=== PATIENT | female | born 1995 | race Caucasian/White ===

== ENCOUNTER 2020-01-08 19:23 | Observation (INO) ==
[2020-01-08] MEDS ORDERED: HYDROmorphone INJ 1 MG/ML SYRINGE IV PRN (19:41)
[2020-01-08] MEDS ORDERED: KETOROLAC 30 MG/ML VIAL IV STA (19:41)
[2020-01-08] MEDS ORDERED: SODIUM CHLORIDE 0.9% 1000ML 1,000 ML IV ONE (19:41)
[2020-01-08] MEDS ORDERED: ONDANSETRON INJ 2 MG/ML 2 ML VIAL IV STA (19:41)
--- NOTE | 2020-01-08 19:49 | Emergency Department Note ---
History of Present Illness General Chief complaint: Abdominal Pain Stated complaint: STOMACH PAIN Time Seen by Provider: 01/08/20 19:37 Source: patient, family, RN notes reviewed and old records reviewed Mode of arrival: ambulatory Limitations: no limitations History of Present Illness Provider complaint: Abdominal pain Onset (ago): hour(s) 8 Location: abdomen Radiation: non-radiation Severity: severe Pain Consistency: + colicky Maximum Pain Intensity: 10 Current Pain Intensity: 10 Quality: + stabbing Relieved By: + none Exacerbated By: + none Associated symptoms: + denies other symptoms Treatments prior to arrival: other (Tylenol) This is a 24-year-old female who presents emergency department complaining of severe right upper quadrant abdominal pain that started after eating breakfast this morning. The patient had strange for breakfast. She is scheduled to have a gastric bypass sometime in the next several months in [place]. In addition the patient has a history of gallstones. She has previously seen a surgeon for her gallstones however the decision was made to attempt to keep the gallbladder until her bypass surgery. She took Tylenol for the pain which has not helped. The patient describes the pain as a pressure extending over her entire epigastric area. She denies any fevers or chills. Home Medications Home Medications Medication Instructions Recorded Confirmed Type albuterol sulfate [Ventolin HFA] 2 puff INHALATION QID PRN MDD . 06/09/19 01/08/20 History acetaminophen [Tylenol Extra 1,000 mg PO Q6H PRN 01/08/20 01/08/20 History Strength] acetaminophen-pamabrom [Midol] 1 - 2 tab PO Q6H PRN 01/08/20 01/08/20 History diphenhydramine HCl [Benadryl] 25 mg PO UD PRN 01/08/20 01/08/20 History Allergies Allergy/AdvReac Type Severity Reaction Status Date / Time kiwi AdvReac Intermediate THROAT Verified 01/08/20 20:29 ITCHY Past Med/Surg History Family History Other No pertinent family history Social History Preferred Language: Kuwaiti marital status: Single current occupational status: employed current occupation: health information management Feels Safe at Home: Yes Smoking Status: Never smoker Review of Systems A total of 10 systems reviewed and were otherwise negative Physical Exam Vital Signs Vital Signs - 24 hr 01/08/20 19:32 01/08/20 20:08 01/08/20 21:09 Temperature 36.3 C L Temperature Source Oral Pulse Rate 92 H Pulse Rate [Right Finger] 80 Pulse Rhythm [Right Finger] Regular Pulse Strength [Right Finger] Normal Respiratory Rate 32 H 20 Respiratory Effort / Characteristics Non-Labored Spontaneous Respiratory Depth Normal Respiratory Pattern Regular Blood Pressure 173/102 H Blood Pressure [Right Arm] 140/95 Blood Pressure Mean 125 Blood Pressure Mean [Right Arm] 110 Pulse Oximetry 100 100 100 Oxygen Delivery Method Room Air Room Air Sepsis Recent Fever Within 48 Hours No Sepsis New/Unexplained Change in Mental Status No Sepsis Action Taken by Nursing No Action Required 01/08/20 22:27 Temperature Temperature Source Pulse Rate 85 Pulse Rate [Right Finger] Pulse Rhythm [Right Finger] Pulse Strength [Right Finger] Respiratory Rate 20 Respiratory Effort / Characteristics Respiratory Depth Respiratory Pattern Blood Pressure 125/87 Blood Pressure [Right Arm] Blood Pressure Mean Blood Pressure Mean [Right Arm] Pulse Oximetry 98 Oxygen Delivery Method Sepsis Recent Fever Within 48 Hours Sepsis New/Unexplained Change in Mental Status Sepsis Action Taken by Nursing GENERAL: Patient is a healthy-appearing well-nourished HEAD: Normocephalic atraumatic EYES: Ocular movements intact pupils equal and react to light OROPHARYNX mucous membranes are moist no exudates present no erythema or edema present NECK: Supple no nuchal rigidity CHEST: Good equal expansion LUNGS: Clear and equal to auscultation CARDIAC: Normal S1 and S2 ABDOMEN: Soft tender RUQ + guarding BACK: No CVA tenderness EXTREMITIES: No pain upon palpation normal muscle strength in all groups no clubbing cyanosis or edema NEURO: Patient is following commands is answering questions appropriately. Alert and oriented x3 Cranial Nerves 2-12 grossly intact Course Administered Medications Hydromorphone HCl (Dilaudid) 1 mg IV Q15M PRN PRN Reason: Pain Stop: 01/22/20 19:40 Last Admin: 01/08/20 19:57 Dose: 1 mg Documented by: [id number] Discontinued Medications Sodium Chloride (Nss 1000ml) 1,000 mls @ 999 mls/hr IV .Q1H1M ONE Stop: 01/08/20 20:41 Last Infusion: 03/09/20 21:10 Dose: 0 mls/hr Documented by: [id number] Admin: 01/08/20 19:57 Dose: 999 mls/hr Documented by: [id number] Cefoxitin Sodium (Mefoxin) 2,000 mg in 60 mls @ 100 mls/hr IV NOW STA Stop: 01/08/20 21:32 Last Infusion: 01/08/20 21:40 Dose: 0 mls/hr Documented by: [id number] Admin: 01/08/20 21:08 Dose: 100 mls/hr Documented by: [id number] Ketorolac Tromethamine (Toradol) 30 mg IV NOW STA Stop: 01/08/20 19:42 Last Admin: 01/08/20 19:57 Dose: 30 mg Documented by: [id number] Ondansetron HCl (Zofran) 4 mg IV NOW STA Stop: 01/08/20 19:42 Last Admin: 01/08/20 19:57 Dose: 4 mg Documented by: [id number] Medical Decision Making Differential Diagnosis My differential diagnosis includes but is not limited to pancreatitis, acute cholecystitis, choledocholithiasis, small bowel obstruction, ruptured AAA in addition to other diagnosis is which were entertained Medical Records Attestation: I reviewed the patient's medical records. Home Medications Current Medication List: was personally reviewed by me Laboratory Data Result diagrams: 01/08/20 19:52 01/08/20 19:52 Lab Results 01/08/20 01/08/20 01/08/20 Range/Units 19:52 19:52 19:52 WBC 13.49 H (4.8-10.8) K/uL RBC 4.69 (4.2-5.4) M/uL Hgb 14.0 (12.0-16.0) g/dL Hct 42.7 (37-47) % MCV 91.0 (80-100) fL MCH 29.9 (25-34) pg MCHC 32.8 (32-36) g/dL RDW Std Deviation 47.3 H (36.4-46.3) fL RDW Coeff of Favian 14.2 (11.5-14.5) % Plt Count 366 (130-400) K/uL MPV 11.0 H (7.4-10.4) fL Immature Gran % (Auto) 0.3 % Neut % (Auto) 68.5 % Lymph % (Auto) 22.4 % [place] % (Auto) 5.8 % Eos % (Auto) 2.6 % Baso % (Auto) 0.4 % Immature Gran # (Auto) 0.04 H (0.00-0.02) K/uL Neut # (Auto) 9.24 H (1.4-6.5) K/uL Lymph # (Auto) 3.02 (1.2-3.4) K/uL [place] # (Auto) 0.78 H (0.11-0.59) K/uL Eos # (Auto) 0.35 (0-0.5) K/uL Baso # (Auto) 0.06 (0-0.2) K/uL Sodium 138 (136-145) mmol/L Potassium 3.3 L (3.5-5.1) mmol/L Chloride 107 (98-107) mmol/L Carbon Dioxide 20 L (21-32) mmol/L Anion Gap 11.0 (3-11) BUN 12 (7-18) mg/dl Creatinine 1.00 (0.6-1.2) mg/dl Est Cr Clr Drug Dosing 146.2 ml/min Est GFR ( Amer) 90.7 Est GFR (Non-Af Amer) 78.2 BUN/Creatinine Ratio 11.8 (10-20) Glucose 148 H (70-99) mg/dl Calcium 9.5 (8.5-10.1) mg/dl Total Bilirubin 0.4 (0.2-1) mg/dl AST 10 L (15-37) U/L ALT 31 (12-78) U/L Alkaline Phosphatase 96 (45-117) U/L Total Protein 8.3 H (6.4-8.2) gm/dl Albumin 3.8 (3.4-5.0) gm/dl Globulin 4.5 H (2.5-4.0) gm/dl Albumin/Globulin Ratio 0.8 L (0.9-2) Lipase 76 (73-393) U/L HCG, Qual Negative (Negative) Imaging Data Radiologist's Impression: US gallbladder HISTORY: 24 years-old Female Pt c/o RUQ abd pain acute right upper quadrant abdominal pain COMPARISON: Abdominal ultrasound 06/09/2019 TECHNIQUE: Multiple real-time sonographic images of the abdominal right upper quadrant were obtained assessing grayscale appearance and color flow FINDINGS: Limited exam secondary to patient body habitus. Visualized pancreas is unr emarkable. Increased echogenicity of the liver without focal mass or intrahepatic biliary ductal dilation. Mild gallbladder distention with cholelithiasis noted within the gallbladder neck. The gallbladder wall measures the upper limits of normal at 3 mm. No pericholecystic fluid. Sonographic Figueroa sign reported as negative. Common bile duct is normal, 5 mm. Imaged right kidney is unremarkable without hydronephrosis. IMPRESSION: 1. Cholelithiasis with mild gallbladder distention. The gallbladder wall measures within the upper limits of normal, however there is no pericholecystic fluid and the sonographic Figueroa sign was reported as negative. Findings are equivocal for acute cholecystitis. Correlate with laboratory analysis and clinical presentation. Additionally, a follow-up nuclear medicine hepatobiliary scan may be considered. 2. No biliary ductal dilation. 3. Hepatic steatosis. ACT 112: Negative or not required by law. The above report was generated using voice recognition software. It may contain grammatical, syntax or spelling errors. Electronically signed by: Jet Lazaro M.D. 01/08/2020 8:42 PM Dictated: 01/08/202038 Transcribed: 01/08/202038 [facility] Narrative This is a 24-year-old female who presents emergency department complaining of right upper quadrant abdominal pain. The patient has a known history of cholecystitis. Using shared medical decision making she was sent for an ultrasound of the right upper quadrant. This was concerning for equivocal cholelithiasis. She does have an elevation white blood cell count of 13,000. The patient was given Dilaudid here for her pain. Repeat examination revealed improvement the patient's symptoms. Based on the exam laboratory work as well as ultrasound I did discuss the case with the surgeon on-call who asked that the patient be admitted to the medicine service. In the meantime the patient was started on Mefoxin. Patient and family are in agreement with the treatment plan. Impression & Plan Abdominal pain, Cholelithiasis Discharge Plan Visit Data Chief Complaint: Abdominal Pain Stated Complaint: STOMACH PAIN ED Provider: Tushar Colvin Discharge Problem: Abdominal pain, Cholelithiasis Discharge Instructions Interventions: ED Discharge Assessment Last Done: 01/08/20 22:27 Forms Stand Alone Forms: Garment[facility] Prescriptions Prescriptions: No Action acetaminophen [Tylenol Extra Strength] 500 mg Tablet 1,000 mg PO Q6H PRN (Reason: Pain) RF: 0 diphenhydramine HCl [Benadryl] 25 mg Capsule 25 mg PO UD PRN (Reason: ALLERGIES) RF: 0 Midol 500-25 mg Tablet 1 - 2 tab PO Q6H PRN (Reason: Pain) RF: 0 albuterol sulfate [Ventolin HFA] 90 mcg/actuation Hfa Aerosol Inhaler 2 puff INHALATION QID MDD . PRN (Reason: Shortness Of Breath Or Wheezing) RF: 0 Discharge Problem: Abdominal pain Qualifiers: Abdominal location: unspecified location Qualified Code(s): R10.9 - Unspecified abdominal pain Cholelithiasis Qualifiers: Cholelithiasis location: other site Biliary obstruction: without biliary obstruction Qualified Code(s): K80.80 - Other cholelithiasis without obstruction
[2020-01-08 20:01] LABS: Basophils # (auto) 0.06 K/uL (0-0.2); Basophils % (auto) 0.4 %; Eosinophils # (auto) 0.35 K/uL (0-0.5); Eosinophils % (auto) 2.6 %; Hematocrit (blood only) 42.7 % (37-47); Immature Granulocytes # (auto) 0.04 K/uL (0.00-0.02); Immature Granulocytes % (auto) 0.3 %; Lymphocytes # (auto) 3.02 K/uL (1.2-3.4); Lymphocytes % (auto) 22.4 %; Mean Corpuscular Hemoglobin 29.9 pg (25-34); Mean Corpuscular Hgb Conc 32.8 g/dL (32-36); Monocytes # (auto) 0.78 K/uL (0.11-0.59); Monocytes % (auto) 5.8 %; Neutrophils # (auto) 9.24 K/uL (1.4-6.5); Neutrophils % (auto) 68.5 %; Platelet Count 366 K/uL (130-400); RDW Coefficient of Variation 14.2 % (11.5-14.5); RDW Standard Deviation 47.3 fL (36.4-46.3); Red Blood Count 4.69 M/uL (4.2-5.4); White Blood Count 13.49 K/uL (4.8-10.8)
[2020-01-08 20:17] LABS: Albumin Level 3.8 gm/dl (3.4-5.0); BUN Creatinine Ratio 11.8 (10-20); Calcium 9.5 mg/dl (8.5-10.1); Creatinine Clr Calc Pharmacy 146.2 ml/min; Est GFR (African American) 90.7; Est GFR (Non-African American) 78.2; Potassium 3.3 mmol/L (3.5-5.1)
[2020-01-08 20:20] LABS: Albumin Globulin Ratio 0.8 (0.9-2); Bilirubin,Total 0.4 mg/dl (0.2-1); Globulin 4.5 gm/dl (2.5-4.0); Total Protein 8.3 gm/dl (6.4-8.2)
[2020-01-08 20:24] LABS: Pregnancy Test, Serum Negative (Negative)
--- NOTE | 2020-01-08 20:43 | Ultrasound Report ---
US gallbladder HISTORY: 24 years-old Female Pt c/o RUQ abd pain acute right upper quadrant abdominal pain COMPARISON: Abdominal ultrasound 06/09/2019 TECHNIQUE: Multiple real-time sonographic images of the abdominal right upper quadrant were obtained assessing grayscale appearance and color flow FINDINGS: Limited exam secondary to patient body habitus. Visualized pancreas is unremarkable. Increased echoge nicity of the liver without focal mass or intrahepatic biliary ductal dilation. Mild gallbladder dist ention with cholelithiasis noted within the gallbladder neck. The gallbladder wall measures the upper limits of normal at 3 mm. No pericholecystic fluid. Sonographic Figueroa sign reported as negative. Co mmon bile duct is normal, 5 mm. Imaged right kidney is unremarkable without hydronephrosis. IMPRESSION: 1. Cholelithiasis with mild gallbladder distention. The gallbladder wall measures within the upper li mits of normal, however there is no pericholecystic fluid and the sonographic Figueroa sign was reporte d as negative. Findings are equivocal for acute cholecystitis. Correlate with laboratory analysis and clinical presentation. Additionally, a follow-up nuclear medicine hepatobiliary scan may be consider ed. 2. No biliary ductal dilation. 3. Hepatic steatosis. ACT 112: Negative or not required by law. The above report was generated using voice recognition software. It may contain grammatical, syntax o r spelling errors. Electronically signed by: Jet Lazaro M.D. 01/08/2020 8:42 PM
[2020-01-08] MEDS ORDERED: cefOXitin 2,000 MG/60 ML BAG IV STA (20:57)
--- NOTE | 2020-01-08 21:48 | History & Physical Report ---
Date of Service January 08, 2020 Assessment & Plan (1) Cholelithiasis: Benitez Mcnamara is a 24 year old woman with a past medical history significant for cholelithiasis, ashtma, and morbid obesity who is here for acute abdominal pain starting this afternoon Abdominal Pain With Known HIstory of Cholecystitis Known history of cholelithiasis one previous episode of cholecystitis U/S equivocal for acute cholecystitis no evidence of pericystic fluid Given Dilaudid and ketorolac IV for pain control and antibiotics cefoxitin 2 g Doing okay currently, surgery consulted, will make NPO and admit to med surg Transitioning to zosyn for acute cholecystitis On Normal saline 125/hour will add 40 meq KCl for mild hypokalemia Morphine IV prn for pain CT scan read pending Will get HIDA scan if inconclusive Asthma Mild no exacerbation PRN albuterol ordered Morbid Obesity BMI 56.[address] Arriola plan is for bariatric surgery in near future Full COde DVT PPx: Mechanical F/E/N: NPO 125 mls/hour and 40 meq KCl Dispo: Admitted to med surg with supportive care for cholecystitis pending further imaging and surgical evaluation. (2) Abdominal pain: (3) Asthma: History of Present Illness Chief Complaint: Abdominal Pain Primary Care Provider: John Paul Lopez Benitez Mcnamara is a 24 year old woman with a history of Asthma (exercise induced primarily, only takes albuterol occasionally before she works out prophylactically) and morbid obesity, BMI 55 who was already planning on having gastric surgery involving removal of gall bladder, and who has had ultrasound with cholecystitis cholelithiasis in June. She has had several more episodes of right upper quadrant pain since a severe attack in June, but today is the worst. She had been in her usual state of health, woke up and had breakfast which was a BLT, about 3.5 hours later she developed severe right upper quadrant pain she described as throbbing. This pain felt like it radiated across her abdomen and up into her chest, but was primarily in her RUQ. She also felt that she was febrile and had chills. She dry heaved several times and had one episode of nonbilious non bloody vomit. She tried some tylenol at home but didn't feel like that helped her, in fact she got progressively worse. In emergency department patient was initially hypertensive but all vital signs WNL with pain control. Her labwork was significant for an elevated white count to 13 and some mild hypokalemia at 3.3. LFT's within normal limits, bili within normal limits. Gallbladder U/S equivocal for acute cholecystitis. Pain was controlled with ketoralac and dilaudid, given cefoxitin 2 g. Allergies Allergy/AdvReac Type Severity Reaction Status Date / Time kiwi AdvReac Intermediate THROAT Verified 01/08/20 20:29 ITCHY Home Medications Home Medications Medication Instructions Recorded Confirmed Type albuterol sulfate [Ventolin HFA] 2 puff INHALATION QID PRN MDD . 06/09/19 01/08/20 History acetaminophen [Tylenol Extra 1,000 mg PO Q6H PRN 01/08/20 01/08/20 History Strength] acetaminophen-pamabrom [Midol] 1 - 2 tab PO Q6H PRN 01/08/20 01/08/20 History diphenhydramine HCl [Benadryl] 25 mg PO UD PRN 01/08/20 01/08/20 History Past Med/Surg History Family History Other No pertinent family history Social History Preferred Language: [place] Communication Ability: Effective Chief Radiation Therapist Required: No Beliefs That Will Affect Care: None marital status: Single Current Living Situation: Significant Other current occupational status: employed current occupation: health information management Other Information That Helps Us Care for You: No Feels Safe at Home: Yes Safety Concerns: Feels Safe At This Time Smoking Status: Never smoker Do You Dip or Chew Tobacco: No ; Second Hand Exposure: No ; Tobacco Cessation Education Requested by Patient: No Hx Alcohol Use: Yes Hx Substance Use: No Review of Systems Constitutional: + fever (Subjective), + chills and + sweats Respiratory: no cough, no chest congestion and no dyspnea Cardiovascular: no chest pain, no dyspnea and no calf pain Gastrointestinal: + abdominal pain, + nausea and + vomiting; no hematemesis, no constipation, no diarrhea/loose stools and no blood in stools Genitourinary: no problem reported Physical Exam Constitutional: Morbidly obese 24 year old woman appearing stated age in no acute distress at time of my exam. ENMT: external ear and nose normal, oropharynx normal Neck: normal visual inspection Respiratory: No increased work of breathing, lungs clear to auscultation, regular rate, no wheezes, rhonci, rales or crackles Cardiovascular: Regular rate regular rhythm, no murmurs, rubs, skips or gallops Gastrointestinal (Abdomen): Abdomen Soft, mild tenderness to deep palpation, but patient characterizes it as more pressure than reproduction of pain Results & Data Vital Signs (Past 12 Hours) Vital Signs Temp Pulse Pulse Resp BP BP Pulse Ox 01/08/20 21:09 80 20 140/95 100 01/08/20 20:08 100 01/08/20 19:32 36.3 C L 92 H 32 H 173/102 H 100 Supervising Physician Co-Signing Physician Notes Patient seen and examined, chart reviewed, case discussed with Dr. Osuna and I agree with his assessment and plan as documented above. Briefly, patient is a 24yo C female with morbid obesity, to have bariatric surgery in the near future. She presents today with severe RUQ and abdominal pain. RUQUS and CT with possible cholecystitis. Patient presently afebrile, HD stable, non-toxic in appearance Skin warm, dry, no rashes/lesions, no jaundice/icterus HEENT - NC/AT, PERRL, EOMI, MMM, neck supple Heart - +S1/S2, regular, no m/r/g Lungs - CTA, no rales/rhonchi/wheezes Abd - +BS, soft, mildly tenderness with deep palpation, no rebound/guarding/peritoneal signs Ext - warm, well perfused, no clubbing/cyanosis/edema Labs and images reviewed. Significant for WBC=13.49 CT - gallbladder distention with equivocal wall thickening Assessment/Plan - 24yo C female, morbid obesity presenting with abdominal pain, ?cholecystitis -Observation -Continue Abx -Check HIDA Scan -Surgical consultation appreciated. Will keep patient NPO for now Resident Activity Tracking Resident Involvement: Resident Care Provided Care Provided: Adult Hospital Medicine (1) Abdominal pain Abdominal location: unspecified location Qualified Code(s): R10.9 - Unspecified abdominal pain (2) Cholelithiasis Biliary obstruction: without biliary obstruction Cholelithiasis location: other site Qualified Code(s): K80.80 - Other cholelithiasis without obstruction
[2020-01-08] MEDS ORDERED: IOVERSOL 100ml IV PRN (22:34)
[2020-01-08] MEDS ORDERED: OPTIRAY 320 125ml IV PRN (22:41)
[2020-01-08] MEDS ORDERED: PIPERACILL/TAZOBAC CONSULT ACTIVE PRN (22:52)
[2020-01-08] MEDS ORDERED: POLYETHYLENE (MIRALAX) 17 GM PACK PO PRN (22:52)
[2020-01-08] MEDS ORDERED: ONDANSETRON INJ 2 MG/ML 2 ML VIAL IV PRN (22:52)
[2020-01-08] MEDS ORDERED: ALBUTEROL HFA 8 GM INHALER INH PRN (22:52)
[2020-01-08] MEDS ORDERED: ACETAMINOPHEN 500 MG TAB PO PRN (22:52)
[2020-01-08] MEDS ORDERED: MoRPHine SULFATE 2 MG/ML CARP IV PRN (22:52)
--- NOTE | 2020-01-08 22:53 | CT Scan Report ---
ABDOMEN AND PELVIS CT WITH IV AND ORAL CONTRAST CT DOSE: 2179.12 mGy.cm HISTORY: Acute right upper quadrant abdominal pain Pt c/o RUQ abd pain TECHNIQUE: Multiaxial CT images of the abdomen and pelvis were performed following the IV administrat ion of 93 cc of Optiray 320 and oral contrast. A dose lowering technique was utilized adhering to th e principles of ALARA. COMPARISON STUDY: Right upper quadrant abdominal ultrasound of same day FINDINGS: Clear lung bases. No pneumatosis or pneumoperitoneum. Imaged inferior cardiac chambers are unremarkab le. Spleen, pancreas and adrenal glands are unremarkable. Hepatic steatosis is better appreciated on the right upper quadrant abdominal ultrasound of same day. The liver is mildly enlarged. The hepatic and portal veins appear patent as visualized. Mild gallbladder distention with equivocal gallbladder wall thickening. Cholelithiasis described on ultrasound is not appreciated by CT. No biliary ductal d ilation or choledocholithiasis. Unremarkable appearance of the kidneys. No renal or ureteral calculi or obstructive uropathy. Ureters , urinary bladder, and ureters appear unremarkable. 1.6 cm cystic structure of the left adnexum is bustos ggestive of a follicle. Right ovarian dermoid, 4.7 x 4.0 x 4.6 cm. Aorta and IVC are unremarkable. Th ere is no adenopathy. No bowel obstruction or bowel wall thickening. Enteric contrast has only progressed to the small gracy l within the abdominal left lower quadrant. The terminal ileum and cecum are not opacified which limi ts the study. The appendix is not diagnostically visualized. No secondary signs of acute appendicitis . Beam hardening artifact from patient body habitus limits the exam. No ascites or mesenteric inflamm ation. The bones appear intact. IMPRESSION: 1. Gallbladder distention with equivocal gallbladder wall thickening. Please refer to right upper lane drant abdominal ultrasound exam of same day for further details. 2. No bowel obstruction or bowel wall thickening. 3. Nonvisualization of the appendix. No secondary signs to suggest acute appendicitis. 4. 4.7 cm right ovarian dermoid. 5. Hepatic steatosis. ACT 112: Negative or not required by law. The above report was generated using voice recognition software. It may contain grammatical, syntax o r spelling errors. Electronically signed by: Jet Lazaro M.D. 01/08/2020 10:52 PM
[2020-01-08] MEDS ORDERED: PIPERACILLIN/TAZOBACTAM 4.5 GM in DEXTROSE 5% 100 ML IV ONE (23:15)
[2020-01-08] MEDS: SODIUM CHLORIDE 0.9% 1000ML 1,000 ML IV SCH (23:30)
[2020-01-08 23:49] LABS: Appearance Urine Clear (Clear); Bilirubin Urine Negative (Negative); Blood Urine Negative (Negative); Color Urine Yellow; Glucose Urine UA Negative (Negative); Ketones Urine 1+ (Negative); Leukocyte Esterase Urine Negative (Negative); Nitrite Urine Negative (Negative); Protein Urine Negative (Negative); Specific Gravity Urine 1.019 (1.000-1.030); Urobilinogen Urine Negative (Negative)
[2020-01-09] MEDS: POTASSIUM CHLORIDE / WTR 10 MEQ/100 ML PLCT IV SCH ×4 (00:57→04:22)
--- NOTE | 2020-01-09 01:39 | Billing Data ---
Date of Service January 09, 2020 Coding Level of Care Code 18886 OBS Care - Level 2
[2020-01-09] MEDS: PIPERACILLIN/TAZOBACTAM 4.5 GM in DEXTROSE 5% 100 ML IV SCH ×2 (04:30→15:00)
[2020-01-09] MEDS ORDERED: ACETAMINOPHEN 1,000 MG/100 ML VIAL IV PRN (06:57)
[2020-01-09] MEDS: SODIUM CHLORIDE 0.9% 1000ML 1,000 ML IV SCH (07:37)
--- NOTE | 2020-01-09 09:47 | Surgery Consultation ---
Date of Consultation January 09, 2020 Assessment & Plan (1) Cholelithiasis: Acute/chronic cholecystitis Will plan for laparoscopic cholecystectomy later today. Supervising Physician Co-Signing Physician Notes Patient seen and examined, labs and imaging reviewed, agree with above. 24-year-old super obese female with known history of symptomatic cholelithiasis. She is in the bariatric pathway in [place] but does not have a surgery date scheduled. She was hoping to have her gallbladder removed at the time of her bariatric surgery. She had seen Dr. Rodriguez in the past. Since then she has had continued postprandial pain. Yesterday morning she ate a breakfast with some turkey strange and the pain returned and was worse than she is had it in a long time. The pain is since subsided but she still has nausea. On exam she is afebrile with stable vitals. She had a slightly elevated leukocytosis yesterday in the emergency department, but her liver labs were normal. Ultrasound showed a distended gallbladder with borderline gallbladder wall thickness, no pericholecystic fluid, clinically correlate for cholecystitis. CT scan was performed which again showed concern for early cholecystitis but no other abn ormalities within the abdomen. This appears to be acute on chronic cholecystitis Plan for laparoscopic cholecystectomy with possible cholangiogram The risks of the procedure were discussed to include but not limited to bleeding, infection, retained stone, bile leak, conversion open, damage to surrounding structures, need for future or more extensive surgery, failure to treat all of her symptoms, and the risk of anesthesia History of Present Illness Attending Physician: Estella Weeks MD History of Present Illness 24 y/o female with intermittent RUQ pain, nausea usually after meals for the past 7 months. Yesterday had more pain than in the past, admitted overnight by med service. Pain is improved, nausea persists. Is pursuing bariatric surgery and was hoping to wait for that to have her gallbladder removed but is early in the process and does not have any timeline for surgery. Allergies Allergy/AdvReac Type Severity Reaction Status Date / Time jimenawi AdvReac Intermediate THROAT Verified 01/08/20 20:29 ITCHY Home Medications Home Medications Medication Instructions Recorded Confirmed Type albuterol sulfate [Ventolin HFA] 2 puff INHALATION QID PRN MDD . 06/09/19 01/08/20 History acetaminophen [Tylenol Extra 1,000 mg PO Q6H PRN 01/08/20 01/08/20 History Strength] acetaminophen-pamabrom [Midol] 1 - 2 tab PO Q6H PRN 01/08/20 01/08/20 History diphenhydramine HCl [Benadryl] 25 mg PO UD PRN 01/08/20 01/08/20 History Patient History Medical History Asthma Bartholin gland cyst No significant past medical history Surgical History History of tonsillectomy No significant past surgical history Family History Other No pertinent family history Social History Preferred Language: Albanian Communication Ability: Effective Film Flat Inspector Required: No Beliefs That Will Affect Care: None marital status: Single Current Living Situation: Significant Other current occupational status: employed current occupation: health information management Other Information That Helps Us Care for You: No Feels Safe at Home: Yes Safety Concerns: Feels Safe At This Time Smoking Status: Never smoker Do You Dip or Chew Tobacco: No ; Second Hand Exposure: No ; Tobacco Cessation Education Requested by Patient: No Hx Alcohol Use: Yes Hx Substance Use: No Review of Systems Constitutional: no fever and no chills Gastrointestinal: + abdominal pain and + nausea; no vomiting Physical Exam Constitutional: WD/WN, vitals as above + morbidly obese Respiratory: normal respiratory effort, lungs clear to auscultation Cardiovascular: Rate/Rhythm: regular rate and regular rhythm Gastrointestinal (Abdomen): Percussion/Palpation: + abdomen tender (minimal) and abdomen soft; no guarding Results & Data Vital Signs (Past 12 Hours) Vital Signs Temp Pulse Pulse Resp BP BP Pulse Ox 01/09/20 07:55 36.4 C L 74 18 108/71 97 01/08/20 22:59 36.4 C L 87 16 138/89 96 01/08/20 22:27 85 20 125/87 98 PG Care Time/CCT Total # of Minutes Spent Total Time Spent with Patient: Total time spent is greater than 50% in coordination of care (as documented) at patient's floor/unit and/or counseling patient: Coding Level of Care Code 72256 Inpt Consult Level 3 Diagnoses Cholelithiasis K80.80 Biliary obstruction: without biliary obstruction Cholelithiasis location: other site (1) Cholelithiasis Biliary obstruction: without biliary obstruction Cholelithiasis location: other site Qualified Code(s): K80.80 - Other cholelithiasis without obstruction
[2020-01-09] MEDS ORDERED: BUPIVACAINE 0.5 % 5 MG/1 ML MPF 30ML VIAL ONE (10:02)
[2020-01-09] MEDS ORDERED: CONRAY 60% 50 ML VIAL ONE (10:02)
--- NOTE | 2020-01-09 10:24 | Anesthesiology Consultation ---
Date of Service January 09, 2020 Assessment & Plan (1) Encounter for pre-operative examination: History Surgery Operation Date: 01/09/20 09:00 Proposed Procedures p Laparoscopic Cholecystectomy, Possible Cholangiogram - Clem Arriola DO, FACS Height/Weight Height: 5 ft 9 in Weight: 174 kg Allergies Allergy/AdvReac Type Severity Reaction Status Date / Time kiwi AdvReac Intermediate THROAT Verified 01/08/20 20:29 ITCHY Medications Home Medications Medication Instructions Recorded Confirmed Last Taken albuterol sulfate [Ventolin HFA] 2 puff INHALATION QID PRN MDD . 06/09/19 01/08/20 Unknown acetaminophen [Tylenol Extra 1,000 mg PO Q6H PRN 01/08/20 01/08/20 Unknown Strength] acetaminophen-pamabrom [Midol] 1 - 2 tab PO Q6H PRN 01/08/20 01/08/20 Unknown diphenhydramine HCl [Benadryl] 25 mg PO UD PRN 01/08/20 01/08/20 Unknown Active Medications Generic Name Dose Route Start Last Admin Trade Name Freq PRN Reason Stop Dose Admin Sodium Chloride 1,000 mls @ 125 mls/hr 01/08/20 22:52 01/09/20 07:37 Nss 1000ml IV 02/07/20 22:51 125 mls/hr .Q8H ARNAUD Administration Piperacillin Sod/Tazobactam 120 mls @ 30 mls/hr 01/09/20 04:00 01/09/20 08:30 Sod 4.5 gm/ Dextrose IV 01/19/20 03:59 Infused Q8H ARNAUD Infusion Protocol Ioversol 125 ml 01/08/20 22:41 01/08/20 22:41 Optiray 320 125ml IV 01/12/20 22:40 120 ml ONCE PRN Administration Interaction Checking Ondansetron HCl 4 mg 01/08/20 22:52 01/09/20 04:27 Zofran IV 02/07/20 22:51 4 mg Q6H PRN Administration Nausea Past Medical History Medical History Asthma Bartholin gland cyst No significant past medical history Past Family History Family History Other No pertinent family history Past Surgical History Surgical History History of tonsillectomy No significant past surgical history Social History Smoking Status: Never smoker Do You Dip or Chew Tobacco: No Hx Alcohol Use: Yes alcohol intake frequency: a few times a month Hx Substance Use: No substance use type: does not use Physical Exam Vital Signs Last Vital Signs Temp 36.7 C 01/09/20 10:52 Pulse 95 H 01/09/20 10:52 Resp 18 01/09/20 10:52 BP 123/86 01/09/20 10:52 Pulse Ox 97 01/09/20 10:52 Testing Laboratory Results 01/08/20 19:52 01/08/20 19:52 Urine Color Yellow 01/08/20 23:25 Urine Appearance Clear (Clear) 01/08/20 23:25 Urine pH 6.0 (4.5-7.5) 01/08/20 23:25 Ur Specific [place] 1.019 (1.000-1.030) 01/08/20 23:25 Urine Protein Negative (Negative) 01/08/20 23:25 Urine Glucose (UA) Negative (Negative) 01/08/20 23:25 Urine Ketones 1+ (Negative) H 01/08/20 23:25 Urine Nitrite Negative (Negative) 01/08/20 23:25 Ur Leukocyte Esterase Negative (Negative) 01/08/20 23:25
[2020-01-09] MEDS ORDERED: ONDANSETRON INJ 2 MG/ML 2 ML VIAL ONE (10:26)
[2020-01-09] MEDS ORDERED: GLYCOPYRROLATE 0.2 MG/ML VIAL ONE (10:26)
[2020-01-09] MEDS ORDERED: DEXAMETHASONE SOD INJ 4 MG/ML VIAL ONE (10:26)
[2020-01-09] MEDS ORDERED: LIDOCAINE HCL 2% 2 ML VIAL/AMP(20MG/ML) INFIL ONE (10:26)
[2020-01-09] MEDS ORDERED: NEOSTIGMINE METHYLSULFATE 5 MG/5 ML SYR ONE (10:26)
[2020-01-09] MEDS ORDERED: MIDAZOLAM HCL 1 MG/ML 2ML VIAL ONE (10:26)
[2020-01-09] MEDS ORDERED: PROPOFOL IV EMULSION 10 MG/ML 20 ML VIAL IV ONE ×2 (10:26→12:47)
[2020-01-09] MEDS ORDERED: ROCURONIUM BROMIDE 10 MG/ML 5 ML VIAL ONE (10:26)
[2020-01-09] MEDS ORDERED: fentaNYL citrate 100 MCG/2 ML VIAL ONE ×3 (10:26→13:26)
[2020-01-09] MEDS ORDERED: HYDROmorphone INJ 1 MG/ML SYRINGE IV PRN (11:02)
[2020-01-09] MEDS ORDERED: ONDANSETRON INJ 2 MG/ML 2 ML VIAL IV PRN (11:02)
[2020-01-09] MEDS ORDERED: ePHEDrine sulfate 50 MG/ML AMP IV PRN (11:02)
[2020-01-09] MEDS ORDERED: ATROPINE SULFATE 0.1 MG/ML 10ML SYR IV PRN (11:02)
[2020-01-09] MEDS ORDERED: SCOPOLAMINE 1.5 MG TDSY ONE (11:08)
[2020-01-09] MEDS ORDERED: SUCCINYLCHOLINE 100MG/5ML SYR ONE (12:03)
[2020-01-09] MEDS ORDERED: cefOXitin 2,000 MG in DEXTROSE 5% 50 ML IV STA (12:23)
--- NOTE | 2020-01-09 12:40 | Medical Student Progress Note ---
Date of Service January 09, 2020 Assessment & Plan Treatment Plan Ms. Marquis is a 24-year-old female with a history of morbid obesity and cholelithiasis who was admitted through the ED on 01/07 with symptoms of nausea, vomiting, and abdominal pain which was treated as an acute cholecystitis. Acute Cholecystitis with Cholelithiasis: Patient was previously seen in June in the [facility] ED and was found to have cholelithiasis. She has had mild intermittent nausea, vomiting, and abdominal pain since that time. During this admission, ultrasound was equivocal for acute cholecystitis with no evidence of pericystic fluid and normal CBD diameter of [address] showed gallbladder distention with equivocal gallbladder wall thickening. - Plan for cholecystectomy later today per surgery. - Post-operative pain medication per surgery. - Antibiotics: Piperacillin/Tazobactam (4.5 g). - Lactated Ringers (at 80 mL/h) Asthma: Patient has a history of mild asthma with no current exacerbation. - PRN albuterol. Morbid Obesity: Patient has a BMI of 56.6. She is being followed by physician in [place] for possible bariatric surgery. - Continue following with bariatric surgery as an outpatient. Hypokalemia: Patient had a potassium of 3.3 in the ED. Repleted with 40 mEq KCl. - Reassess potassium prior to discharge. Code: Full Code DVT Prophylaxis: Mechanical F/E/N: NPO, Maintenance IVF with LR at 80 mls/hr. Dispo: Return to med/surg following cholecystectomy. Anticipate d/c tomorrow pending toleration of full diet. Supervising Attestation Medical Student Supervision Note: I independently interviewed and examined the patient and verified the flores history and physical, reviewed labs and image studies, discussed the case with medical student Madelin Redmond and the resident Dr. Whiting and agree with the findings and care plan. Subjective Ms. Marquis's symptoms improved greatly overnight. She does not endorse any pain but remains nauseated. This nausea improved after receiving ondansetron at 4AM but returned about 4 hours later. Review of Systems Review of Systems: All systems reviewed & are unremarkable except as noted in HPI & below Constitutional: no fever, no chills, no sweats, no body aches, no malaise and no anorexia Eyes: no worsening vision Ear, Nose, Mouth, Throat: no problem reported Respiratory: no cough, no dyspnea and no pain on inspiration Cardiovascular: no chest pain, no edema and no calf pain Gastrointestinal: + nausea; no abdominal pain, no belching, no heartburn, no vomiting and no cramping Genitourinary: no problem reported Musculoskeletal: no problem reported Integumentary: no rash and no lesions Neurologic: no problem reported Psychiatric: no problem reported Endocrine: no fatigue and no flushing Hematologic / Lymphatic: no problem reported Allergy / Immunological: no problem reported Physical Exam Physical Exam: General Appearance: Patient is resting comfortably in bed on exam. She is cooperative and in no acute distress. HEENT: Not examined. Neck: Not examined. Respiratory: Lungs clear bilaterally to auscultation. No increased work of breathing. No wheezes, rhonchi, or rales. Cardiovascular: Regular rate and rhythm. S1 and S2 appreciated. No rubs, murmurs, or gallops. No lower extremity edema appreciated. Gastrointestinal: Normoactive bowel sounds appreciated. No tenderness to palpation, guarding, or rebound tenderness. Negative Figueroa's sign. No organomegaly. MSK: Normal range of motion appreciated. Skin: Not examined. Neurological: Patient alert and oriented x4. Psychiatric: Thought process clear and organized. Affect appropriate. Genitourinary: Not examined. Lymphatic: Not examined. Results & Data ([facility]) Vital Signs (Past 12 Hours) Vital Signs Temp Pulse Resp BP BP Pulse Ox 01/09/20 10:52 36.7 C 95 H 18 123/86 123/86 97 01/09/20 07:55 36.4 C L 74 18 108/[address] Abdomen/Pelvis: Gallbladder distention with equivocal gallbladder wall thickening. No bowel obstruction or bowel wall thickening.
--- NOTE | 2020-01-09 13:08 | Operative Report ---
PG Post Operative Report Pre & Post Diagnosis Operation Date: 01/09/20 09:00 Pre-Op Diagnosis: Acute Cholecystitis Post-Op Diagnosis: Acute Cholecystitis, BMI greater than 55 I identified the patient and participated in the time-out.: Yes Procedure Operation Date: 01/09/20 09:00 Actual Procedures p Laparoscopic Cholecystectomy - Clem Arriola DO, LESLIE Surgeon Clem Arriola DO, FACS Helminthologist Paul Tariq Estimated Blood Loss 10 Findings Consistent with Post-Op Diagnosis Acute on chronic cholecystitis with cholelithiasis. Critical view of safety obtained, cystic duct and artery doubly clipped and divided. Good hemostasis. Patient's BMI 56, increase the length of the case by approximately 20 to 30%. Specimens Gallbladder Anesthesia Type General Complications none Disposition Accompanied Patient To Recovery: No Disposition: Recovery Room Indications 24-year-old female with known cholelithiasis, presented to the emergency department yesterday with signs and symptoms of acute cholecystitis. Plan for laparoscopic cholecystectomy with possible cholangiogram. The risks of the procedure were discussed, all questions were answered, and the patient agreed to proceed with surgery as planned. Description of Procedure The patient was properly identified, consented, and taken to the operating room where she was placed in the supine position. General endotracheal anesthesia was induced. SCDs and a safety belt were placed. Preoperative antibiotics were administered. The patient's abdomen was prepped and draped in the standard sterile fashion. A surgical timeout was performed and all parties were in agreement that this was the correct patient and procedure to be performed and we continued as planned. An incision was made superior and to the left of the umbilicus overlying the rectus muscle and the Veress needle was inserted. Saline drop test confirmed entry into the peritoneum. The abdomen was insufflated with carbon dioxide which the patient tolerated without incident. The abdomen was then entered using the Optiview technique and a 5 mm trocar. The laparoscope was inserted and no damage from initial trocar or Veress needle placement was noted, no gross abnormalities were noted within the 4 quadrants of the abdomen. An 11 mm port was placed in the subxiphoid position and two 5 mm ports were then placed in the right subcostal position. The patient was placed in reverse Trendelenburg position and rotated towards the left. The gallbladder was acutely inflamed. The dome of the gallbladder was retracted towards the left upper quadrant and the infundibulum was retracted toward the right lower quadrant revealing Calot's triangle. Peritoneal attachments were taken down with electrocautery and blunt dissection. The cystic duct and artery were circumferentially dissected. A window of safety was obtained showing the cystic duct entering the gallbladder with no aberrant structures noted. The cystic duct and artery were doubly clipped and divided. The gallbladder was then lifted off the gallbladder fossa with electrocautery. The gallbladder was placed in an Endo Catch bag and removed through the subxiphoid port site. The right upper quadrant was irrigated and hemostasis was found to be good. 5 mm trochars were removed under direct visualization and the abdomen was allowed to collapse. The subxiphoid port site fascia was closed with 0 Vicryl suture utilizing the Rico-Angel closure device. The wound was irrigated, and the skin of all ports was closed with 4-0 Monocryl subcuticular sutures. Dermabond was placed over the wounds. The patient was extubated in the operating room and taken to the PACU where she recovered without apparent incident. All sponge, instrument and needle counts were correct at the conclusion of the procedure. The patient tolerated the procedure well. The patient was 5 feet 9 inches tall and weighed 174 kg, her BMI was 56.6. This increased difficulty the case and extended the length of the case by approximately 20 to 30%. The physician's learning support assistant was present and scrubbed for the entirety of the case and was essential in positioning the patient, prepping and draping, retraction and exposure, driving the laparoscope, removal of the gallbladder, closure the incisions, and placement of the dressings. I attest to the content of the Intraoperative Record and any orders documented therein. Any exceptions are noted below.
[2020-01-09] MEDS ORDERED: MoRPHine SULFATE 2 MG/ML CARP IV PRN (13:20)
[2020-01-09] MEDS ORDERED: MoRPHine SULFATE 4 MG/ML 1 ML CARP\\VIAL IV PRN (13:20)
[2020-01-09] MEDS: fentaNYL citrate 100 MCG/2 ML VIAL IV PRN ×4 (13:27→13:42)
--- NOTE | 2020-01-09 14:07 | Anesthesiology Progress Note ---
Date of Service January 09, 2020 Anesthesia Post Procedure Vital Signs Vital Signs: Temp Pulse Pulse Pulse Resp BP BP 01/09/20 14:00 36.9 C 71 18 148/89 H 01/09/20 13:50 36.9 C 75 18 154/96 H 01/09/20 13:40 91 H 18 167/98 H 01/09/20 13:30 77 18 140/87 01/09/20 13:22 36.4 C L 95 H 18 158/96 H 01/09/20 10:52 36.7 C 95 H 18 123/86 01/09/20 07:55 36.4 C L 74 18 108/71 01/08/20 22:59 36.4 C L 87 16 138/89 01/08/20 22:27 85 20 125/87 01/08/20 21:09 80 20 01/08/20 20:08 01/08/20 19:32 36.3 C L 92 H 32 H 173/102 H BP Pulse Ox 01/09/20 14:00 98 01/09/20 13:50 98 01/09/20 13:40 98 01/09/20 13:30 95 01/09/20 13:22 95 01/09/20 10:52 123/86 97 01/09/20 07:55 97 01/08/20 22:59 96 01/08/20 22:27 98 01/08/20 21:09 140/95 100 01/08/20 20:08 100 01/08/20 19:32 100 Pain Intensity Abdomen: Pain Intensity: 5 Transfer of Care Handoff Completed per policy Notes Mental Status: alert / awake / arousable and participated in evaluation Patient Amnestic to Procedure: Yes Nausea / Vomiting: adequately controlled Pain: adequately controlled Airway Patency, RR, SpO2: stable & adequate BP & HR: stable & adequate Hydration State: stable & adequate Anesthetic Complications: no major complications apparent and Pt Satisfied with anesthetic care
[2020-01-09] MEDS: LACTATED RINGER'S 1,000 ML IV SCH ×2 (14:25→20:10)
[2020-01-09] MEDS: KETOROLAC TROMETHAMINE 15 MG/ML VIAL IV PRN (15:00)
[2020-01-09] MEDS: OXYCODONE/ACETAMINOPHEN 5mg/325mg TAB PO PRN ×2 (15:48→20:08)
[2020-01-10] MEDS: PIPERACILLIN/TAZOBACTAM 4.5 GM in DEXTROSE 5% 100 ML IV SCH ×2 (00:02→07:43)
[2020-01-10] MEDS: OXYCODONE/ACETAMINOPHEN 5mg/325mg TAB PO PRN ×2 (00:03→07:43)
[2020-01-10] MEDS: KETOROLAC TROMETHAMINE 15 MG/ML VIAL IV PRN ×2 (01:52→11:20)
[2020-01-10 05:26] LABS: Hematocrit (blood only) 36.6 % (37-47); Hemoglobin 11.6 g/dL (12.0-16.0); Mean Corpuscular Hemoglobin 29.5 pg (25-34); Mean Corpuscular Hgb Conc 31.7 g/dL (32-36); Mean Corpuscular Volume 93.1 fL (80-100); Platelet Count 321 K/uL (130-400); RDW Coefficient of Variation 14.6 % (11.5-14.5); RDW Standard Deviation 50.1 fL (36.4-46.3); Red Blood Count 3.93 M/uL (4.2-5.4); White Blood Count 9.79 K/uL (4.8-10.8)
[2020-01-10 05:58] LABS: Alanine Aminotransferase 29 U/L (12-78); Albumin Level 2.9 gm/dl (3.4-5.0); Alkaline Phosphatase 69 U/L (45-117); Aspartate Aminotransferase 16 U/L (15-37); BUN Creatinine Ratio 6.2 (10-20); Bilirubin Direct < 0.1 mg/dl (0-0.2); Bilirubin,Total 0.5 mg/dl (0.2-1); Blood Urea Nitrogen 5 mg/dl (7-18); Calcium 8.5 mg/dl (8.5-10.1); Carbon Dioxide 25 mmol/L (21-32); Chloride 110 mmol/L (98-107); Creatinine Clr Calc Pharmacy 166.8 ml/min; Est GFR (African American) 104.4; Est GFR (Non-African American) 90.1; Glucose 107 mg/dl (70-99); Potassium 3.8 mmol/L (3.5-5.1); Sodium 140 mmol/L (136-145); Total Protein 6.6 gm/dl (6.4-8.2)
--- NOTE | 2020-01-10 07:23 | Anesthesiology Progress Note ---
Date of Service January 10, 2020 Anesthesia Post Procedure Vital Signs Vital Signs: Temp Pulse Pulse Resp BP BP Pulse Ox 01/10/20 04:01 36.4 C L 81 18 124/80 93 01/09/20 23:05 36.7 C 72 18 111/57 L 92 01/09/20 20:25 36.7 C 67 16 106/71 96 01/09/20 17:10 73 14 119/76 94 01/09/20 16:03 36.7 C 90 16 142/83 H 97 01/09/20 15:10 70 16 136/85 96 01/09/20 14:40 71 18 134/87 92 01/09/20 14:10 36.5 C 79 16 145/89 H 95 01/09/20 14:00 36.9 C 71 18 148/89 H 98 01/09/20 13:50 36.9 C 75 18 154/96 H 98 01/09/20 13:40 91 H 18 167/98 H 98 01/09/20 13:30 77 18 140/87 95 01/09/20 13:22 36.4 C L 95 H 18 158/96 H 95 01/09/20 10:52 36.7 C 95 H 18 123/86 123/86 97 01/09/20 07:55 36.4 C L 74 18 108/71 97 Pain Intensity Abdomen: Pain Intensity: 4 Notes Mental Status: alert / awake / arousable and participated in evaluation Patient Amnestic to Procedure: Yes Nausea / Vomiting: adequately controlled Pain: adequately controlled Airway Patency, RR, SpO2: stable & adequate BP & HR: stable & adequate Hydration State: stable & adequate Anesthetic Complications: no major complications apparent and Pt Satisfied with anesthetic care
--- NOTE | 2020-01-10 08:07 | Surgery Progress Note ---
Date of Service January 10, 2020 Assessment & Plan (1) Cholelithiasis: POD#1 laparoscopic cholecystectomy WBC 9 and LFTs within normal limits patient clinically feeling well and tolerating liquids advance diet this morning incisions c/d/i stable for discharge from surgical standpoint pending toleration of diet will leave instructions for patient to follow up in clinic with Dr. Arriola within 2 weeks Subjective Patient says she is feeling well. Tolerated clear liquids without nausea/vomiting. Has some right sided pain but is tolerable and much better than yesterday. Physical Exam Physical Exam: awake/alert, sitting up in bed Constitutional: + morbidly obese Gastrointestinal (Abdomen): Inspection/Auscultation: + abdominal surgical incision (c/d/i with dermabond overtop); abdomen not distended Percussion/P alpation: + abdomen tender (mild ttp avis-incisionally) and abdomen soft Results & Data Vital Signs (Past 12 Hours) Vital Signs Temp Pulse Pulse Resp BP Pulse Ox 01/10/20 07:50 36.4 C L 70 17 105/68 94 01/10/20 04:01 36.4 C L 81 18 124/80 93 01/09/20 23:05 36.7 C 72 18 111/57 L 92 01/09/20 20:25 36.7 C 67 16 106/71 96 PG Care Time/CCT Total # of Minutes Spent Total Time Spent with Patient: Total time spent is greater than 50% in coordination of care (as documented) at patient's floor/unit and/or counseling patient: Coding Level of Care Code None Diagnoses Cholelithiasis K80.80 Biliary obstruction: without biliary obstruction Cholelithiasis location: other site (1) Cholelithiasis Biliary obstruction: without biliary obstruction Cholelithiasis location: other site Qualified Code(s): K80.80 - Other cholelithiasis without obstruction
[2020-01-10] MEDS: LACTATED RINGER'S 1,000 ML IV SCH (08:53)
--- NOTE | 2020-01-10 11:07 | Medical Student Progress Note ---
Date of Service January 10, 2020 Assessment & Plan Treatment Plan Ms. Marquis is a 24-year-old female with a history of morbid obesity and cholelithiasis who was admitted through the ED on 01/07 with acute cholecystitis and is now post-op day 1 following a cholecystectomy. Acute Cholecystitis with Cholelithiasis: - Underwent cholecystectomy on 01/08. No complications. - Post-operative pain medication per surgery. - Full diet tolerated. - Cleared by surgery for discharge. Asthma: - Patient has a history of mild asthma with no current exacerbation. - PRN albuterol. Morbid Obesity: - Patient has a BMI of 56.6. - She is being followed by physician in [place] for possible bariatric surgery. - Continue following with bariatric surgery as an outpatient. Hypokalemia: - Patient had a potassium of 3.3 in the ED on 01/07. - Repleted with 40 mEq KCl. - Today potassium has returned to 3.8. - Resolved. Code: Full DVT Prophylaxis: Mechanical Dispo: Discharge to home. Subjective Patient states she is doing well on POD#1 after cholecystectomy. She does not endorse any nausea or vomiting. She has some slight right abdominal pain but states it is much less than what she had prior to the surgery. She tolerated a full diet this morning and has been passing gas but has not yet had a bowel movement. She is ambulating well. Review of Systems Review of Systems: All systems reviewed & are unremarkable except as noted in HPI & below Constitutional: no fever, no chills, no sweats, no body aches, no malaise, no weakness and no anorexia Eyes: no problem reported Ear, Nose, Mouth, Throat: no problem reported Respiratory: no cough, no dyspnea and no pain on inspiration Cardiovascular: no chest pain, no dyspnea, no edema and no calf pain Gastrointestinal: no abdominal pain, no belching, no nausea, no vomiting and no cramping Genitourinary: no problem reported Musculoskeletal: + joint pain (right shoulder) Integumentary: no rash and no lesions Neurologic: no problem reported Psychiatric: no problem reported Endocrine: no fatigue and no flushing Hematologic / Lymphatic: no problem reported Allergy / Immunological: no problem reported Physical Exam Physical Exam: General Appearance: Patient is resting comfortably in bed on exam. She is cooperative and in no acute distress. HEENT: Not examined. Neck: Not examined. Respiratory: Lungs clear bilaterally to auscultation. No increased work of breathing. Cardiovascular: Regular rate and rhythm. S1 and S2 appreciated. No rubs, murmurs, or gallops. Gastrointestinal: Normoactive bowel sounds. No tenderness to palpation. No organomegaly. MSK: Normal range of motion appreciated. Skin: 3 incision sites on the abdomen appreciated. No edema, erythema, or drainage. Neurological: Alert and oriented x4. Motor and sensory function grossly intact. Psychiatric: Thought process clear and organized. Affect appropriate. Genitourinary: Not examined. Lymphatic: Not examined. Results & Data ([facility]) Vital Signs (Past 12 Hours) Vital Signs Temp Pulse Pulse Resp BP BP Pulse Ox 01/10/20 09:53 36.4 C L 70 81 17 105/68 123/86 94 01/10/20 07:50 36.4 C L 70 17 105/68 94 01/10/20 04:01 36.4 C L 81 18 124/80 93 01/09/20 23:05 36.7 C 72 18 111/57 L 92 K+: 3.8
--- NOTE | 2020-01-10 11:35 | Discharge Summary ---
Date of Service January 10, 2020 Admission HPI Per Admitting Provider Benitez Mcnamara is a 24 year old woman with a history of Asthma (exercise induced primarily, only takes albuterol occasionally before she works out prophylactically) and morbid obesity, BMI 55 who was already planning on having gastric surgery involving removal of gall bladder, and who has had ultrasound with cholecystitis cholelithiasis in June. She has had several more episodes of right upper quadrant pain since a severe attack in June, but today is the worst. She had been in her usual state of health, woke up and had breakfast which was a BLT, about 3.5 hours later she developed severe right upper quadrant pain she described as throbbing. This pain felt like it radiated across her abdomen and up into her chest, but was primarily in her RUQ. She also felt that she was febrile and had chills. She dry heaved several times and had one episode of nonbilious non bloody vomit. She tried some tylenol at home but didn't feel like that helped her, in fact she got progressively worse. In emergency department patient was initially hypertensive but all vital signs WNL with pain control. Her labwork was significant for an elevated white count to 13 and some mild hypokalemia at 3.3. LFT's within normal limits, bili within normal limits. Gallbladder U/S equivocal for acute cholecystitis. Pain was controlled with ketoralac and dilaudid, given cefoxitin 2 g. Admission Exam Per Admitting Provider Constitutional: Morbidly obese 24 year old woman appearing stated age in no acute distress at time of my exam. ENMT: external ear and nose normal, oropharynx normal Neck: normal visual inspection Respiratory: No increased work of breathing, lungs clear to auscultation, regular rate, no wheezes, rhonci, rales or crackles Cardiovascular: Regular rate regular rhythm, no murmurs, rubs, skips or gallops Gastrointestinal (Abdomen): Abdomen Soft, mild tenderness to deep palpation, but patient characterizes it as more pressure than reproduction of pain Principal Diagnosis Cholecystitis Discharge Exam Constitutional WD/WN, vitals as above + morbidly obese and cooperative Eyes + anicteric sclerae ENMT external ear and nose normal, oropharynx normal Neck normal visual inspection and trachea midline Respiratory normal respiratory effort, lungs clear to auscultation Cardiovascular RRR, no murmur, no edema Heart Sounds: normal S1 and normal S2 Extremities: no pedal edema Gastrointestinal (Abdomen) Inspection/Auscultation: normal bowel sounds Percussion/Palpation: abdomen nontender and + abdomen not soft Surgical incisions are clean, dry and intact, without surrounding erythema or purulent drainge. Steri-strips in place. Skin no rashes, warm and dry Psychiatric A+Ox3, euthymic affect Discharge Data Allergies Allergy/AdvReac Type Severity Reaction Status Date / Time roslyn AdvReac Intermediate THROAT Verified 01/08/20 20:29 ITCHY Consultations 01/08/20 21:15 Consult General Surgery Stat 01/08/20 21:16 ED Decision to Admit Stat Procedures Performed Operation Date: 01/09/20 09:00 Actual Procedures p Laparoscopic Cholecystectomy - Clem Arriola DO, FACS Ordered Studies 01/08/20 19:41 CT abd pelvis oral and IV con Stat US gallbladder Stat Hospital Course (1) Cholelithiasis: Anders is a 24 year old morbidly obese female with known gallstones who w as admitted for abdominal pain, found have acute cholecystitis. Cholecystitis - patient presented to ED with RUQ pain and elevated WBC count - known cholelithiasis and one previous episode of cholecystitis - gallbladder U/S equivocal for acute cholecystitis, no evidence of pericystic fluid - Abdominopelvic CT scan showing gallbladder distention and wall thickening - surgery was consulted and opted to perform a laparoscopic cholecystectomy - procedure without complications - patient able to tolerate regular diet, pain well controlled by day of discharge - patient counseled on low fat diet after gallbladder removal to reduce risk of diarrhea - follow up with surgery as directed Outpatient items to do: assess incision sites for infection risk Morbid Obesity - BMI 56.6 - patient follows with [facility] for medical weight loss - enrolled in 6 month bariatric surgery program; plan is for gastric sleeve surgery summer 2019 Outpatient items to do: work to facilitate weight loss surgery, lifestyle modifications (2) Abdominal pain: (3) Asthma: Total Time Total Time Spent Total Time Spent (In Minutes): see attending attestation Discharge Plan Discharge Items Patient Disposition: Home - Self-Care Reason For Visit: CHOLECYSTITIS Discharge Diagnosis: laparoscopic cholecystectomy Activity: Per Instructions section Lifting: No more than 10 pounds Bathing Comment: may shower starting 01/10/20; no soaking in tubs Exercise/Sports: Wait until after follow-up appointment Driving/Machine Use: Resume 3 days after discharge Non-emergency contact: Primary Care Provider Call non-emergency contact if: you have any medication questions, your symptoms worsen, your pain is not controlled, your pain is unusual for you, you have a fever, your temperature is above 101.5, your wound has increased redness, your wound has increased drainage and your wound pain has increased Follow-up/Referrals: Clem Arriola DO, FACS [Physician] - 01/23/20 10:00 am (Please call to selene israel follow up in clinic within 2 weeks) John Paul Lopez DO [Primary Care Provider] - 01/16/20 2:00 pm Diet: Regular and Low Fat Addtl Attending Provider Instructions: You were admitted to [facility] for evaluation of abdominal pain. An ultrasound and cat scan of your abdomen were ordered and showed inflammation of your gallbladder from numerous gallstones. Surgery was consulted and removed your gallbladder laparoscopically. The surgery went well, there were no complications. By the time of discharge, you were able to tolerate a regular diet without getting nauseous and your pain was minimal. Please attempt to eat a low fat diet now that your gallbladder has been removed. Without your gallbladder, if you eat a fatty meal, you may experience diarrhea. Please follow up with your primary care doctor within one week of discharge. Follow up with your surgeon as directed. Pending Studies at Discharge: Yes Studies:: surgical pathology Stand-Alone Forms: My [facility] Health, Smoking Cessation Medications and DC Order Prescriptions: Continued acetaminophen [Tylenol Extra Strength] 500 mg Tablet 1,000 mg PO Q6H PRN (Reason: Pain) RF: 0 diphenhydramine HCl [Benadryl] 25 mg Capsule 25 mg PO UD PRN (Reason: ALLERGIES) RF: 0 Midol 500-25 mg Tablet 1 - 2 tab PO Q6H PRN (Reason: Pain) RF: 0 albuterol sulfate [Ventolin HFA] 90 mcg/actuation Hfa Aerosol Inhaler 2 puff INHALATION QID MDD . PRN (Reason: Shortness Of Breath Or Wheezing) RF: 0 Discharge Orders: Discharge Order (Routine); Ordered 01/10/20 Ordered By: Megan Petty/Other Patient Handouts: Surgery Prevent DVT After, Gallbladder Surg, Cholecystectomy, Having Laparoscopic Cholecystectomy Admission Data Admit Date/Time: 01/08/20 22:08 Attending Provider: Estella Weeks Admit Provider: Carlos Osuna Primary Care Provider: John Paul Lopez Other Providers: Clem Arriola ; Allie Schulz Other Interventions: Discharge Summary Assessment (RN) Last Done: 01/10/20 09:53 DC Date/Time DO NOT enter until pt leaves facility: 01/10/20 13:04 Supervising Physician Co-Signing Physician Notes Resident Physician Supervision Note: I independently interviewed and examined the patient and verified the flores history and physical, reviewed labs and image studies, discussed the case with the resident Dr. Whiting and agree with the findings and care plan. Resident Activity Tracking Resident Involvement: Resident Care Provided Care Provided: Adult Hospital Medicine
== END 2020-01-10 13:04 | disposition home or self-care (01) | DRG 418 ==
LOC: ED 19:23 → 3N 22:08 → SUATTDRO 22:08 → INTOOBSV 22:08 → 3N 22:27